=== PATIENT | male | born 1990 | race Two or more races ===

== ENCOUNTER 2021-02-23 20:12 | Emergency (ER) | payer MEDICAID ==
[~2021-02-23] VITALS: Ht 165.1 cm; Wt 97.1 kg
[2021-02-23 20:24] VITALS: BP 120/79
[2021-02-23] MEDS ORDERED: AMOX-430 PO (23:07)
[2021-02-23] MEDS ORDERED: PSEU120T57 PO (23:07)
[2021-02-23] MEDS ORDERED: ALBU18HF2 INH (23:07)
== END 2021-02-23 23:14 | disposition home or self-care (01) ==
LOC: ER 20:21
DX: J32.9 Chronic sinusitis, unspecified (principal); J40 Bronchitis, not specified as acute or chronic; Z79.899 Other long term (current) drug therapy
CPT/HCPCS: 71045-TC

== ENCOUNTER → 2021-06-14 | Emergency (ER) | payer MEDICAID ==
[~2021-06-14] VITALS: Ht 165.1 cm; Wt 88.5 kg
[~2021-06-14] MED LIST: ACET-2605 PO; ALBU18HF2 INH; AMOX-430 PO; LIDOCAINE VISCOUS 2% UD 15 ML UDC ONE; MAG HYDROX/AL HYDROX/SIMETH 30 ML UDC ONE; MORPHINE SULFATE INJ 4 MG/ML DISP.SYRIN ONE; ONDANSETRON HCL/PF 4 MG/2 ML VIAL ONE; PSEU120T57 PO
--- NOTE | 2021-06-14 20:20 | NUR ---
PATIENT BIBS C/O STOMACH PAIN THAT RADIATES TO LEFT FLANK FOR THE PAST MONTH +NAUSEA "CURRENTLY TAKING OMEPRAZOLE". PATIETN IS A/O X 4, RR EVEN AND UNLABORED, NO SOB NOTED. PATIENT CONNECETED TO HALL MANAGER AND POX.
[2021-06-14 20:37] LABS: BILIRUBIN,URINE Negative (NEGATIVE); COLOR,URINE YELLOW (YELLOW); LEUKOCYTE ESTERASE ,URINE Negative (NEGATIVE); NITRITE, URINE Negative (NEGATIVE); PH,URINE 5.5 (5.0-8.0); PROTEIN,URINE Negative (NEGATIVE); UGLUCOSE Negative (NEGATIVE); UROBILINOGEN,URINE 0.2 EU/dL (0.2)
[2021-06-14 20:38] LABS: BASOPHILS # (AUTO) 0.1 K/uL (0.0-0.2); EOSINOPHILS % (AUTO) 2.7 % (0.0-6.0); HEMATOCRIT 44 % (39-51); HEMOGLOBIN 14.7 g/dL (13.5-17.5); LYMPHOCYTES # (AUTO) 4.4 K/uL (0.8-4.8); LYMPHOCYTES % (AUTO) 47.6 % (20.0-44.0); MEAN CORPUSCULAR HGB CONC 34 g/dl (31.0-36.0); MEAN CORPUSCULAR VOLUME 89 fL (80-96); MONOCYTES # (AUTO) 0.6 K/uL (0.1-1.30); MONOCYTES % (AUTO) 6.1 % (2.0-12.0); NEUTROPHILS # (AUTO) 3.9 K/uL (1.8-8.9); NEUTROPHILS % (AUTO) 42.6 % (43.0-81.0); PLATELET COUNT (AUTO) 295 K/uL (150-450); WHITE BLOOD COUNT (AUTO) 9.2 K/uL (4.3-11.0)
[2021-06-14] MEDS: ONDANSETRON HCL/PF 4 MG/2 ML VIAL IVP ONE (20:42)
[2021-06-14] MEDS: IV NS 0.9% 1,000 ML BAG IV ONE (20:42)
[2021-06-14] MEDS: MORPHINE SULFATE INJ 2 MG/ML DISP.SYRIN IV ONE (20:42)
[2021-06-14 20:58] LABS: ALBUMIN 3.9 g/dL (3.4-5.0); BILIRUBIN,DIRECT 0.1 mg/dL (0.0-0.2); BILIRUBIN,TOTAL 0.4 mg/dL (0.2-1.0); CREATININE 1.3 mg/dL (0.6-1.3); POTASSIUM 3.8 mmol/L (3.5-5.1); TOTAL PROTEIN, SERUM 7.6 g/dL (6.4-8.2)
[2021-06-14 21:02] LABS: CALCIUM, SERUM 8.9 mg/dL (8.5-10.1)
[2021-06-14] MEDS: LIDOCAINE VISCOUS 2% UD 15 ML UDC MM ONE (22:19)
[2021-06-14] MEDS: MAG HYDROX/AL HYDROX/SIMETH 30 ML UDC PO ONE (22:19)
--- NOTE | 2021-06-14 22:25 | NUR ---
Patient discharged to home in stable condition. Rx and Written and verbal after care instructions given. Patient verbalizes understanding of instruction.
[2021-06-14 22:26] VITALS: BP 119/68
== END | disposition home or self-care (01) ==
LOC: ER 19:40
DX: K29.70 Gastritis, unspecified, without bleeding (principal); Z79.899 Other long term (current) drug therapy
CPT/HCPCS: 36415; 71045; 80048; 80076; 81003; 83690; 85025; 96361; 96374; 96375; 99284; J2270; J2405; J7030

== ENCOUNTER 2023-10-10 13:07 | Emergency (ER) | payer MEDICAID, OTHER ==
[~2023-10-10] VITALS: Ht 165.1 cm; Wt 95.3 kg
[~2023-10-10 13:07] MED LIST changes: -LIDOCAINE VISCOUS 2% UD 15 ML UDC ONE; -MAG HYDROX/AL HYDROX/SIMETH 30 ML UDC ONE; -MORPHINE SULFATE INJ 4 MG/ML DISP.SYRIN ONE; -ONDANSETRON HCL/PF 4 MG/2 ML VIAL ONE
[2023-10-10 13:58] VITALS: BP 139/74; TEMP 98.1; O2SAT 99
[2023-10-10] MEDS ORDERED: TYL2T PO (14:35)
[2023-10-10] MEDS ORDERED: BENZ1LOZ58 PO (14:35)
[2023-10-10] MEDS ORDERED: dexaMETHasone SOD PHOSPHATE 1 ML ONE (14:42)
[2023-10-10] MEDS ORDERED: ACETAMINOPHEN 325 MG TABLET ONE (14:42)
[2023-10-10] MEDS ORDERED: dexaMETHasone SOD PHOSPHATE 10 MG/ML VIAL IM ONE (15:00)
[2023-10-10] MEDS ORDERED: ACETAMINOPHEN 325 MG TABLET PO ONE (15:00)
== END 2023-10-10 14:55 | disposition home or self-care (01) ==
LOC: ER 13:07
DX: J02.9 Acute pharyngitis, unspecified (principal); Z20.822 Contact with and (suspected) exposure to COVID-19
CPT/HCPCS: 99283; 87426; 87804 ×2; J1100